=== PATIENT | female | born 2000 | race Caucasian/White ===

== ENCOUNTER 2025-06-15 11:45 | Outpatient (OUT) | payer OTHER, SELFPAY ==
[2025-06-15 12:24] LABS: Hematocrit 35.2 % (36.0-48.0); Hemoglobin 11.9 g/dL (12.0-16.0); Immature Granulocytes Abs Auto 0.02 10^3/uL (0.00-0.03); Immature Granulocytes Pct Auto 0.2 % (0.0-0.5); Lymphocytes Absolute Auto 1.4 10^3/uL (1.2-3.8); Mean Corpuscular HGB Conc 33.8 g/dL (29.9-35.2); Mean Corpuscular Hemoglobin 30.4 pg (26.7-34.0); Mean Corpuscular Volume 89.8 fL (81.0-99.0); Platelet Count 302 10^3/uL (150-450); Red Blood Count 3.92 10^6/uL (4.20-5.40); White Blood Count 8.2 10^3/uL (4.0-11.0)
[2025-06-15 13:17] LABS: Cannabinoid Screen Urine NEGATIVE (NEGATIVE); Methamphetamines Screen Urine NEGATIVE (NEGATIVE); Tricyclic Antidepressant Urine NEGATIVE (NEGATIVE)
[2025-06-16 05:07] LABS: Rubella Antibodies, IgG 4.39 index (Immune >0.99)
[2025-06-16 14:09] LABS: Rapid Plasma Reagin, Quant Non Reactive titer (NonRea<1:1)
[2025-06-18 13:09] LABS: Age Gdln ACOG Testing Note (.); IGP, rfx Aptima HPV ASCU Note (.)
== END 2025-06-15 11:46 | disposition home or self-care (01) ==
LOC: LAB 11:49
PROVIDERS: Visit Provider Physician Assistant
DX: Z34.92 Encounter for supervision of normal pregnancy, unspecified, second trimester (principal); Z3A.17 17 weeks gestation of pregnancy; N92.6 Irregular menstruation, unspecified
CPT/HCPCS: 36415; 80307; 82105; 83036; 85025; 86592; 86762; 86803; 86850; 86900; 86901; 87086; 87340; 87389; 88175

== ENCOUNTER 2025-06-15 19:02 | Outpatient (REF) | payer OTHER, SELFPAY ==
--- OUTSIDE RECORDS SUMMARY | 2025-06-15 10:30 | XMS_ITS | Encounter Summary ---
Author Organization [facility] [address] [place] [address] Care Team Providers Care Safety Sitter Name Role Phone Saray Cardenas MD Primary Care Provider Reason for Visit * ReasonCommentsRoutine Visit Encounter Details DateTypeDepartmentCare Team (Latest Contact Info)Kqpulngllwm35/09/2025 10:30 AM ESTRoutine [facility] [address] [place] [address] Carlita Jorge PA [address] [place], [place] [id number] Missed menses; , unspecified gestational age ([facility]); Encounter for supervision of normal first in first trimester ([facility]); Screening, , for anatomic survey ([facility]); Second trimester ([facility]); 17 weeks gestation of ([facility]) Social History Tobacco UseTypesPacks/DayYears UsedDateSmoking Tobacco: FormerCigarettes0.32 Quit: 1Smokeless Tobacco: Never Tobacco Cessation:Counseling Given: Not Answered Alcohol UseStandard Drinks/WeekCommentsNot Currently0 (1 standard drink = 0.6 oz pure alcohol)occassionally Caffine: under 200 mgEstimated Date of HzlxlqluHstidaeiBps66/13/2026Based on last menstrual period of 02/10/2025Sex and Gender InformationValueDate RecordedSex Assigned at BirthNot on fileLegal Sex Gslbbh6409/19/2022 8:28 PM EDTGender IdentityNot on fileSexual OrientationNot on filedocumented as of this encounter Last Filed Vital Signs Vital SignReadingTime TakenCommentsBlood Ftamnuuc736/6006/15/2025 10:54 AM EST Pulse--Temperature--Respiratory Rate--Oxygen Saturation--Inhaled Oxygen Concentration--Jgdlbq90.4 kg (142 lb)06/15/2025 10:54 AM ESTHeight--Body Mass Index--documented in this encounter Progress Notes * FREDA Bermeo - 06/15/2025 10:30 AM EST Reason for Appointment: Patient ID: Daria Alfredo is a 25 y.o. female who presents for Routine Visit Patient presents today for Annual Exam. and Return OB appointment. MEDICATIONS Current Outpatient Medications Medication Instructions fexofenadine-pseudoephedrine ER ([facility]) 180-240 MG 24 hr tablet ondansetron ODT (ZOFRAN-ODT) 4 mg, Oral, Every 6 hours PRN YO-Jfh-UW-Rowlett-3 (Vitafusion ) 0.18-32.5 MG chewable tablet ALLERGIES No Known Allergies PROBLEMS Active Ambulatory Problems Diagnosis Date Noted No Active Ambulatory Problems Resolved Ambulatory Problems Diagnosis Date Noted No Resolved Ambulatory Problems Past Medical History: Diagnosis Date Anxiety Depression HISTORY PAST MEDICAL HISTORY SOCIAL HISTORY Past Medical History: Diagnosis Date Anxiety Depression Social History Tobacco Use Smoking status: Former Current packs/day: 0.00 Average packs/day: 0.3 packs/day for 2.0 years (0.5 ttl pk-yrs) Types: Cigarettes Quit date: 07/08/2020 Years since quittin.9 Smokeless tobacco: Never Vaping Use Vaping status: Former Substance Use Topics Alcohol use: Not Currently Comment: occassionally Caffine: under 200 mg Drug use: Not Currently Types: Marijuana Comment: ediables FAMILY HISTORY Family History Problem Relation Name Age of Onset Hypertension Father Tavares Alfredo Heart attack Maternal Grandfather Darrell Stuart Heart failure Maternal Grandfather Darrell Stuart Brain cancer Paternal Grandmother Alem Alfredo Cancer Paternal Grandmother Alem Alfredo SURGICAL HISTORY History reviewed. No pertinent surgical history. REVIEW OF SYSTEMS Review of Systems: Review of Systems Constitutional: Negative. HENT: Negative. Eyes: Negative. Respiratory: Negative. Cardiovascular: Negative. Gastrointestinal: Negative. Genitourinary: Negative. Musculoskeletal: Negative. Skin: Negative. Neurological: Negative. All other systems reviewed and are negative. Hematological: Negative. Endocrine: Negative. Allergic/Immunologic: Negative. OBJECTIVE Objective: Physical Exam Constitutional: Appearance: Normal appearance. She is well-developed. Genitourinary: Vulva normal. Breasts: Breasts are soft. Right: Normal. Left: Normal. Cardiovascular: Rate and Rhythm: Normal rate and regular rhythm. Pulmonary: Effort: Pulmonary effort is normal. Breath sounds: Normal breath sounds. Abdominal: General: Bowel sounds are normal. There is no distension. Palpations: Abdomen is soft. Tenderness: There is no abdominal tenderness. There is no guarding or rebound. Musculoskeletal: General: No swelling. Normal range of motion. Right lower leg: No edema. Left lower leg: No edema. Neurological: Mental Status: She is alert and oriented to person, place, and time. Skin: General: Skin is warm and dry. Psychiatric: Mood and Affect: Mood normal. Behavior: Behavior normal. Vitals and nursing note reviewed. Exam conducted with a snuff blender present. Vitals: There is no height or weight on file to calculate BMI. BP: Patient's last menstrual period was 02/10/2025. ASSESSMENT & PLAN ICD-10-CM 1. Missed menses N92.6 CBC and differential Hemoglobin A1c RPR Rubella antibody, IgG Hepatitis B surface antigen Hepatitis C antibody HIV-1 and HIV-2 antibodies Urine culture Type and screen ABO/Rh Type and screen ABO/Rh 2. , unspecified gestational age ([facility]) Z34.90 CBC and differential Hemoglobin A1c RPR Rubella antibody, IgG Hepatitis B surface antigen Hepatitis C antibody HIV-1 and HIV-2 antibodies Type and screen ABO/Rh Rapid drug screen, urine Type and screen ABO/Rh Rapid drug screen, urine 3. Encounter for supervision of normal first in first trimester ([facility]) Z34.01 Rapid drug screen, urine Rapid drug screen, urine 4. Screening, , for anatomic survey ([facility]) Z36.89 US OB 14+ weeks anatomy scan US OB 14+ weeks anatomy scan 5. Second trimester ([facility]) Z34.92 Pap Smear SURESWAB(R) ADVANCED VAGINITIS PLUS, TMA CHLAMYDIA TRACHOMATIS (GENITO/STI) Neisseria gonorrhea DNA probe, direct Alpha fetoprotein, maternal Alpha fetoprotein, maternal 6. 17 weeks gestation of ([facility]) Z3A.17 POCT urinalysis dipstick manually resulted Assessment/Plan Return OB/Annual Exam: Patient presents today for a annual exam/routine obstetrics appointment. Patient is currently [id number]. Patient states she is doing well but has complaints of nausea in the morning. Pap and cultures was obtained without difficulty and patient was given orders for anatomy scan and msAFP to be obtained. Orders Placed This Encounter Procedures Urine culture US OB 14+ weeks anatomy scan CBC and differential Hemoglobin A1c RPR Rubella antibody, IgG Hepatitis B surface antigen Hepatitis C antibody HIV-1 and HIV-2 antibodies Type and screen ABO/Rh Rapid drug screen, urine CHLAMYDIA TRACHOMATIS (GENITO/STI) Neisseria gonorrhea DNA probe, direct Alpha fetoprotein, maternal POCT urinalysis dipstick manually resulted Follow Up: Patient is to schedule annual exam for next year and return to office in 4 weeks for OB appointment. Documented by Salina Hansen CST on behalf of: FREDA Bermeo documented in this encounter Plan of Treatment DateTypeDepartmentCare Team (Latest Contact Info)Bhsezsdvzhj06/06/2026 9:30 AM ESTAncillary Procedure [facility] [address] [place] [address] 07/13/2025 10:20 AM ESTRoutine [facility] [address] [place] [address] Bruno Andrade DO [address] [place] [address] NameTypePriorityAssociated DiagnosesOrder ScheduleCBC and differentialLabRoutine Missed menses , unspecified gestational age ([facility]) Ordered: 06/15/2025Hemoglobin R3kHlsLigqlap Missed menses , unspecified gestational age ([facility]) Ordered: 06/15/2025RPRLabRoutine Missed menses , unspecified gestational age ([facility]) Ordered: 06/15/2025Rubella antibody, IgGLabRoutine Missed menses , unspecified gestational age ([facility]) Ordered: 06/15/2025Hepatitis B surface antigenLabRoutine Missed menses , unspecified gestational age ([facility]) Ordered: 06/15/2025Hepatitis C antibodyLabRoutine Missed menses , unspecified gestational age ([facility]) Ordered: 06/15/2025HIV-1 and HIV-2 antibodiesLabRoutine Missed menses , unspecified gestational age ([facility]) Ordered: 06/15/2025Urine cultureMicrobiologyRoutine Missed menses Ordered: 06/15/2025Type and screenLabRoutine Missed menses , unspecified gestational age ([facility]) Expected: 06/15/2025 (Approximate), Expires: 06/15/2026BO/RhLabRoutine Missed menses , unspecified gestational age ([facility]) Expected: 06/15/2025 (Approximate), Expires: 06/15/2026Rapid drug screen, urine LabRoutine , unspecified gestational age ([facility]) Encounter for supervision of normal first in first trimester ([facility]) Expected: 06/15/2025 (Approximate), Expires: 06/15/2026Pap SmearPathology and CytologyRoutine Second trimester ([facility]) Ordered: 06/15/2025SURESWAB(R) ADVANCED VAGINITIS PLUS, TMAPathology and CytologyRoutine Second trimester ([facility]) Ordered: 06/15/2025HLAMYDIA TRACHOMATIS (GENITO/STI)LabRoutine Second trimester ([facility]) Ordered: 06/15/2025Neisseria gonorrhea DNA probe, directLabRoutine Second trimester ([facility]) Ordered: 06/15/2025US OB 14+ weeks anatomy scanImagingRoutine Screening, , for anatomic survey ([facility]) Expected: 06/15/2025, Expires: 09/13/2025lpha fetoprotein, maternalLabRoutine Second trimester ([facility]) Expected: 06/15/2025 (Approximate), Expires: 08/16/2025documented as of this encounter Goals GoalPatient Goal TypeAssociated ProblemsRecent ProgressPatient-Stated?Author Reminders Care PlanOB RemindersNoOpen Scheduling, Backgrounddocumented as of this encounter Procedures Procedure NamePriorityDate/TimeAssociated DiagnosisCommentsPOCT URINALYSIS PPHXHHFJClzzqwe87/09/2025 11:09 AM EST 17 weeks gestation of ([facility]) documented in this encounter Results * POCT urinalysis dipstick manually resulted (06/15/2025 11:09 AM EST)Component ValueRef RangeTest MethodAnalysis TimePerformed AtPathologist SignatureColor, UAYellowClarity, UAClearGlucose, UANegativeNegative - 2000(110) ++++ mg/dL Bilirubin, UANegativeNegative - 4(70) +++ mg/dLKetones, UANegativeNegative - 160(16) ++++ mg/dLSpec Grav, UA1.0151 - 1.03Blood, UANegativeNegative - 50 Raghu/mcLpH, UA7.05 - 9Protein, UANegativeNegative - 2000(20) ++++ mg/dL Urobilinogen, UA1.00.2 - 12 mg/dLLeukocytes, UANegativeNegative - 500+++ Armaan/mcLNitrite, UANegativeNegative - PositiveSpecimen (Source)Anatomical Location / LateralityCollection Method / VolumeCollection TimeReceived Time Urine06/15/2025 11:09 AM EST Narrative Authorizing ProviderResult TypeResult StatusWellmont Health System TEST ENTER/EDIT ORDERABLESFinal Result documented in this encounter Visit Diagnoses Diagnosis Missed menses , unspecified gestational age ([facility]) Encounter for supervision of normal first in first trimester ([facility]) Screening, , for anatomic survey ([facility]) Encounter for anatomic survey Second trimester ([facility]) state, incidental 17 weeks gestation of ([facility]) documented in this encounter Additional Health Concerns Active ProblemsNoted DateDiagnosed DateOB Ummjhdhag52/20/2025 documented as of this encounter Care Teams Team MemberRelationshipSpecialtyStart DateEnd Date Saray Cardenas MD [address] [place] [address] PCP - GeneralFamily Medicine04/06/25documented as of this encounter
--- OUTSIDE RECORDS SUMMARY | 2025-06-15 19:07 | XMS_ITS | Clinical Summary ---
Author Organization [facility] Address [address] [place] [address] Care Team Providers Care Recruiting Manager Name Role Phone Saray Cardenas MD Primary Care Provider [phone] Allergies No known active allergies Medications MedicationSigDispense QuantityRefillsLast FilledStart DateEnd DateStatus fexofenadine-pseudoephedrine ER (Bettie-D Allergy & Congestion) 180-240 MG 24 hr tablet 4Active UQ-Hbc-SP-[place]-3 (Vitafusion ) 0.18-32.5 MG chewable tablet 5Active ondansetron ODT (Zofran-ODT) 4 MG disintegrating tablet Indications:NauseaTake 1 tablet (4 mg) by mouth every 6 (six) hours if needed for nausea or vomiting 30 tablet 5Active ondansetron ODT (Zofran-ODT) 4 MG disintegrating tablet Indications:NauseaTake 1 tablet (4 mg) by mouth every 6 (six) hours if needed for nausea or vomiting 30 tablet Discontinued(Reorder) Active Problems Estimated Date of JrstkpwtHbigrdgtJdu25/13/2026ased on last menstrual period of 02/10/2025 No known active problems Encounters DateTypeDepartmentCare VbmzObpdziypudc09/09/2025 10:30 AM ESTRoutine [facility] [address] [place] [address] [place] [address] Carlita Jorge PA Missed menses; , unspecified gestational age ([facility]); Encounter for supervision of normal first in first trimester ([facility]); Screening, , for anatomic survey ([facility]); Second trimester ([facility]); 17 weeks gestation of ([facility])5Clinisync Result Encounter [facility] External Department Unsolicited Carlita Jorge PA 06/15/2025amboo flowsheet [facility] [address] [place] [address] Carlita Jorge PA 05/17/2025 9:50 AM ESTRoutine [facility] [address] [place] [address] [phone] Bruno Andrade, DO 13 weeks gestation of ([facility]); Second trimester ([facility]); Qrblkd285Bamboo flowsheet [facility] [address] [facility] [place] [address] Bruno Andrade, DO 05/12/20255109Kapofd72/14/2025bstract [facility] [address] [facility] [place] [address] Noemí Gonzalez, VILLA 04/20/2025Telephone [facility] [address] [facility] [facility] [place] [address] Bruno Andrade, DO 04/20/2025bstract [facility] [address] [facility] [facility] [place] [address] Bruno Andrade, DO 04/19/2025External Result Encounter [facility] [address] [place] [address] Bruno Andrade, DO 04/16/2025 10:00 AM EDTInitial [facility] [address] [place] [address] [place]: 9w2d04/06/2025 10:00 AM EDTOffice Visit [facility] [address] [facility] [place] [phone] Virgen Augustin NP Encounter to establish care with new provider (Primary Dx); Routine general medical examination at a health care yiehrejv25/30/2025amboo flowsheet [facility] [address] [place] [phone] Virgen Augustin NP 04/06/2025Travelfrom Last 3 Months Family History Medical HistoryRelationNameCommentsHypertensionFatherJim SlickHeart attack Maternal GrandfatherJairo LozanoHeart failureMaternal GrandfatherJairo Stuart Brain cancerPaternal GrandmotherLinda SlickCancerPaternal GrandmotherLinda Orland RelationNameStatusCommentsFatherJim SlickAliveMaternal GrandfatherJairo Stuart DeceasedMotherAlivePaternal GrandmotherLinda SlickDeceased Social History Tobacco UseTypesPacks/DayYears UsedDateSmoking Tobacco: FormerCigarettes0.32 Quit: 07/08/2020mokeless Tobacco: Never Tobacco Cessation:Counseling Given: Not Answered Alcohol UseStandard Drinks/WeekCommentsNot Currently0 (1 standard drink = 0.6 oz pure alcohol)occassionally Caffine: under 200 mgEstimated Date of XpbzdrblJrpxszkaJdz52/13/2026ased on last menstrual period of 02/10/2025Sex and Gender InformationValueDate RecordedSex Assigned at BirthNot on fileLegal Sex Avjtej2509/19/2022 8:28 PM EDTGender IdentityNot on fileSexual OrientationNot on file Last Filed Vital Signs Vital SignReadingTime TakenCommentsBlood Gniuztom800/6012 10:54 AM EST Mzxsn263104/06/2025 9:57 AM VSCZyyvyhdrtle46.3 ??C (97.3 ??F)04/06/2025 9:57 AM EDTRespiratory Rate--Oxygen Iqntpdaymh65%04/06/2025 9:57 AM EDTInhaled Oxygen Concentration--Gisbkp23.4 kg (142 lb)06/15/2025 10:54 AM ESTHeight--Body Mass Index-- Plan of Treatment DateTypeDepartmentCare Team (Latest Contact Info)Fdmcupxssfg53/06/2026 9:30 AM ESTAncillary Procedure [facility] [address] [facility] [place] [address] 07/13/2025 10:20 AM ESTRoutine [facility] [address] [facility] [place] [phone] Bruno Andrade DO [address] [facility] [place] [address] Health MaintenanceDue DateLast DoneCommentsCOVID-19 Vaccine ( season) , 05/04/2021Influenza Vaccine (#1) Pneumococcal Vaccine: Pediatrics (0 to 5 Years) and At-Risk Patients (6 to 64 Years)Aged OutNo longer eligible based on patient's age to complete this topic Goals GoalPatient Goal TypeAssociated ProblemsRecent ProgressPatient-Stated?Author Reminders Care PlanOB RemindersNoOpen Scheduling, Background Procedures Procedure NamePriorityDate/TimeAssociated DiagnosisCommentsALL TYPE AND SCREEN Nmrqyae2106/15/2025 12:06 PM EST MLR HEMOGLOBIN Z4ZEilvhza51/09/2025 12:06 PM EST ALL CBC WITH AUTO TGTLRxabxjq45/09/2025 12:06 PM EST TB[facility] DRUG SCREEN RAPID (URINE)Mbfqpfz0706/15/2025 12:00 PM EST POCT URINALYSIS DENFHISVKbhzilc38/09/2025 11:09 AM EST 17 weeks gestation of ([facility]) POCT URINALYSIS KUGLXCXSFnvkfet46/10/2025 10:05 AM EST 13 weeks gestation of ([facility]) Second trimester ([facility]) US OB RGAUXWCAACPF28/13/2025 11:18 AM EDT POCT URINALYSIS FMYKSGCRTkuwlwq47/10/2025 10:02 AM EDT Missed menses POCT , DGADZNinaldd39/10/2025 10:01 AM EDT Missed menses from Last 3 Months Results * MLR HEMOGLOBIN A1C (06/15/2025 12:06 PM EST)ComponentValueRef RangeTest Method Analysis TimePerformed AtPathologist SignatureGLYCOHEMOGLOBIN A1C4.54.5 - 6.2 %TBHComment: ADA RECOMMENDED LIMIT 4.0 - 6.0 ADA THERAPEUTIC TARGET < 7.0 ACTION SUGGESTED > 7.0 ESTIMATED AVERAGE LSKGAVM82kq/dLTBHSpecimen (Source)Anatomical Location / LateralityCollection Method / VolumeCollection TimeReceived Time06/15/2025 12:06 PM EST06/15/2025 12:19 PM EST Narrative [facility] - 06/15/2025 1:16 PM EST Authorizing ProviderResult TypeResult StatusAmy Luisito PACLINISYNCFinal Result Performing OrganizationAddressCity/State/ZIP CodePhone Number CLINISYNC TB * ALL TYPE AND SCREEN (06/15/2025 12:06 PM EST)ComponentValueRef RangeTest MethodAnalysis TimePerformed AtPathologist SignatureBLOOD TYPEO PositiveTBH ANTIBODY SCREENNEGATIVETBHSpecimen (Source)Anatomical Location / Laterality Collection Method / VolumeCollection TimeReceived Time06/15/2025 12:06 PM EST 06/15/2025 12:19 PM EST Narrative [facility]IN[facility]NC - 06/15/2025 1:17 PM EST [facility] , ?? Authorizing ProviderResult TypeResult StatusAmy Luisito PACLINISYNCFinal Result Performing OrganizationAddressCity/State/ZIP CodePhone Number CLINISYNC TBH * (ABNORMAL) ALL CBC WITH AUTO DIFF (06/15/2025 12:06 PM EST)ComponentValueRef RangeTest MethodAnalysis TimePerformed AtPathologist SignatureTBH WBC8.24.0 - 11.0 10 3/uLTBHTBH RBC3.92(L)4.20 - 5.40 10 6/uLTBHTBH HGB11.9(L)12.0 - 16.0 g/dLTBHTBH HCT35.2(L)36.0 - 48.0 %TBHTBH MCV89.881.0 - 99.0 fLTBHTBH MCH30.4 26.7 - 34.0 pgTBHTBH MCHC33.829.9 - 35.2 g/dLTBHTBH RDW12.511.0 - 15.0 %TBHTBH NGL717420 - 450 10 3/uLTBHTBH MPV9.4(L)9.5 - 13.5 fLTBHNEUTROPHILS PERCENT AUTO73.643.0 - 75.0 %TBHLYMPHOCYTES PERCENT AUTO17.3(L)20.5 - 60.0 %TBH MONOCYTES PERCENT AUTO7.01.7 - 12.0 %TBHTBH EO %1.50.9 - 7.0 %TBHBASOPHILS PERCENT AUTO0.40.2 - 2.0 %TBHIMMATURE GRANULOCYTES PCT AUTO0.20.0 - 0.5 %TBH NEUTROPHILS ABSOLUTE AUTO6.01.4 - 6.5 10 3/uLTBHLYMPHOCYTES ABSOLUTE AUTO1.4 1.2 - 3.8 10 3/uLTBHMONOCYTES ABSOLUTE AUTO0.60.3 - 0.8 10 3/uLTBHTBH EO #0.1 0.0 - 0.7 10 3/uLTBHBASOPHILS ABSOLUTE AUTO0.00.0 - 0.1 10 3/uLTBHIMMATURE GRANULOCYTES ABS AUTO0.020.00 - 0.03 10 3/uLTBHSpecimen (Source)Anatomical Location / LateralityCollection Method / VolumeCollection TimeReceived Time 06/15/2025 12:06 PM EST06/15/2025 12:19 PM EST Narrative [facility]NC - 06/15/2025 12:26 PM EST Authorizing ProviderResult TypeResult StatusAmy [place] PACLINISYNCFinal Result Performing OrganizationAddressCity/State/ZIP CodePhone Number CLINISYNC TB * TB DRUG SCREEN RAPID (URINE) (06/15/2025 12:00 PM EST)ComponentValueRef Range Test MethodAnalysis TimePerformed AtPathologist SignatureCANNABINOID SCREEN URINENEGATIVENEGATIVETBHPHENCYCLIDINE SCREEN URINENEGATIVENEGATIVETBHCOCAINE SCREEN URINENEGATIVENEGATIVETBHMETHAMPHETAMINES SCREEN URINENEGATIVENEGATIVE TBHOPIATE SCREEN URINENEGATIVENEGATIVETBHAMPHETAMINE SCREEN URINENEGATIVE NEGATIVETBHBENZODIAZEPINES SCREEN URINENEGATIVENEGATIVETBHTRICYCLIC ANTIDEPRESSANT URINENEGATIVENEGATIVETBHMETHADONE SCREEN URINENEGATIVENEGATIVE TBHBARBITURATES SCREEN URINENEGATIVENEGATIVETBHOXYCODONE SCREEN URINENEGATIVE NEGATIVETBHBUPRENORPHINE SCREEN URINENEGATIVENEGATIVETBHComment: DRUG CLASS TEST SYSTEM CUT-OFF CONCENTRATIONS ARE FOLLOWS: AMP (Amphetamine): 500 ng/mL BAR (Barbiturates): 200 ng/mL BZO (Benzodiazepines): 150 ng/mL BUP (Buprenorphine): 10 ng/mL RALEIGH (Cocaine): 150 ng/mL mAMP (Methamphetamine): 500 ng/mL MTD (Methadone): 200 ng/mL OPI (Opiates): 100 ng/mL OXY (Oxycodone): 100 ng/mL PCP (Phencyclidine): 25 ng/mL THC (Cannabinoids): 50 ng/mL TCA (Trycyclic Antidepressants): 300 ng/mL Specimen (Source)Anatomical Location / LateralityCollection Method / Volume Collection TimeReceived Time06/15/2025 12:00 PM EST06/15/2025 12:22 PM EST Narrative [facility]INISYNC - 06/15/2025 1:17 PM EST Authorizing ProviderResult TypeResult StatusAmy [place] PACLINISYNCFinal Result Performing OrganizationAddressCity/State/ZIP CodePhone Number CLINISYNC TBH * POCT urinalysis dipstick manually resulted (06/15/2025 11:09 AM EST) Only the most recent of3 resultswithin the time period is included. ComponentValueRef RangeTest MethodAnalysis TimePerformed AtPathologist Signature Color, UAYellowClarity, UAClearGlucose, UANegativeNegative - 2000(110) ++++ mg/dLBilirubin, UANegativeNegative - 4(70) +++ mg/dLKetones, UANegativeNegative - 160(16) ++++ mg/dLSpec Grav, UA1.0151 - 1.03Blood, UANegativeNegative - 50 Raghu/mcLpH, UA7.05 - 9Protein, UANegativeNegative - 2000(20) ++++ mg/dL Urobilinogen, UA1.00.2 - 12 mg/dLLeukocytes, UANegativeNegative - 500+++ Armaan/mcL Nitrite, UANegativeNegative - PositiveSpecimen (Source)Anatomical Location / LateralityCollection Method / VolumeCollection TimeReceived RfjnEdwcn17/09/2025 11:09 AM EST Narrative Authorizing ProviderResult TypeResult StatusAmy [facility] TEST ENTER/EDIT ORDERABLESFinal Result * US OB transvaginal (04/19/2025 11:18 AM EDT)Anatomical RegionLaterality ModalityBodyUltrasoundSpecimen (Source)Anatomical Location / Laterality Collection Method / VolumeCollection TimeReceived Time04/19/2025 11:18 AM EDT Narrative 04/19/2025 11:17 AM EDT THIS EXAM WAS PERFORMED AT [facility] [place] US TRANSVAGINAL PREG HISTORY: Encounter for supervision of normal in first trimester. ??Dating. ??Viability. ??Missed menses, positive urine test. COMPARISON: None TECHNIQUE: Early obstetric ultrasound utilizing transvaginal imaging. Grayscale and color Doppler used. FINDINGS: The uterus measures approximately 10.5 x 6.0 x 6.8 cm. The urinary bladder is unremarkable. ??Thereis no evidence of free fluid in the pelvic cul-de-sac. A single intrauterine gestation is noted. ??The crown rump length measures 2.3 cm consistent with an age of 9 weeks and 0 days. The heart rate is 161 beats per minute. ??Internal dimensions of the yolk sac measure approximately 0.33 cm. ??Amniotic fluid volume is appropriate for gestational age. No subchorionic hemorrhage demonstrated. ??No placenta seen given early gestational age. The right ovary measures 2.7 x 1.9 x 1.7 cm. ??Color Doppler demonstrates normal blood flow. ?? The left ovary measures 2.7 x 2.6 x 2.8 cm. ??Color Doppler demonstrates normal blood flow. ??Intraovarian cystic structure with a thick wall and peripheral Doppler flow, corresponding with a corpus luteal cyst. IMPRESSION: Single live intrauterine . ??The estimated age is 9 weeks and 0 days by crown-rump length.??The estimated date of delivery is 11/22/2025 by ultrasound. The heart rate is 161 beats per minute. Approved by Dmia Gutierrez MD ??on 04/19/2025 9:09 AM I, Lex Farr MD have personally reviewed the image(s) and agree with and/or edited the report Finalized by Lex Farr MD on 04/19/2025 11:17 AM Procedure Note Radiology, Radiologist, - 04/19/2025 THIS EXAM WAS PERFORMED AT [facility] TRANSVAGINAL PREG HISTORY: Encounter for supervision of normal in first trimester. Dating. Viability. Missed menses, positive urine test. COMPARISON: None TECHNIQUE: Early obstetric ultrasound utilizing transvaginal imaging.Grayscale and color Doppler used. FINDINGS: The uterus measures approximately 10.5 x 6.0 x 6.8 cm. The urinary bladderis unremarkable. There is no evidence of free fluid in the xmzlsdkkf-cz-xth. A single intrauterine gestation is noted. The crown rump length measures2.3 cm consistent with an age of 9 weeks and 0 days. The heart rateis 161 beats per minute. Internal dimensions of the yolk sac measureapproximately 0.33 cm. Amniotic fluid volume is appropriate forgestational age. No subchorionic hemorrhage demonstrated. No placenta seen given earlygestational age. The right ovary measures 2.7 x 1.9 x 1.7 cm. Color Doppler demonstratesnormal blood flow. The left ovary measures 2.7 x 2.6 x 2.8 cm. Color Doppler demonstratesnormal blood flow. Intraovarian cystic structure with a thick wall andperipheral Doppler flow, corresponding with a corpus luteal cyst. IMPRESSION: Single live intrauterine . The estimated age is 9 weeks and 0days by crown-rump length. The estimated date of delivery is 11/22/2025 byultrasound. The heart rate is 161 beats per minute. Approved by Dima Gutierrez MD on 04/19/2025 9:09 AM ILex MD have personally reviewed the image(s) and agreewith and/or edited the report Finalized by Lex Farr MD on 04/19/2025 11:17 AM Authorizing ProviderResult TypeResult StatusCorey Raymond DOIMG OB US PROCEDURES Final Result * (ABNORMAL) POCT , urine manually resulted (04/16/2025 10:01 AM EDT) ComponentValueRef RangeTest MethodAnalysis TimePerformed AtPathologist SignaturePreg Test, UrPositiveNegativeSpecimen (Source)Anatomical Location / LateralityCollection Method / VolumeCollection TimeReceived TimeUrine 04/16/2025 10:01 AM EDT Narrative Authorizing ProviderResult TypeResult StatusCorey Raymond DOPOINT OF CARE TEST ENTER/EDIT ORDERABLESFinal Result from Last 3 Months Additional Health Concerns Active ProblemsNoted DateDiagnosed DateOB Nluylioxl83/20/2025 Insurance Care Teams Team MemberRelationshipSpecialtyStart DateEnd Date Saray Cardenas MD [address] [place] [address] PCP - GeneralFamily Medicine04/06/25
--- OUTSIDE RECORDS SUMMARY | 2025-06-15 19:07 | XMS_ITS | Encounter Summary ---
Author Organization [facility] Address [address] [place] [address] Care Team Providers Care Senior Air Director Name Role Phone Saray Cardenas MD Primary Care Provider [phone] Encounter Details DateTypeDepartmentCare Team (Latest Contact Info)Unkxknygyyl98/09/2025linisync Result Encounter [facility] External Department Unsolicited Carlita Jorge PA [address] [place], [facility] Social History Tobacco UseTypesPacks/DayYears UsedDateSmoking Tobacco: FormerCigarettes0.32 Quit: 07/08/2020mokeless Tobacco: NeverAlcohol UseStandard Drinks/WeekComments Not Currently0 (1 standard drink = 0.6 oz pure alcohol)occassionally Caffine: under 200 mgEstimated Date of YhonwoskNvxhqhrsQqc78/13/2026Based on last menstrual period of 02/10/2025Sex and Gender InformationValueDate RecordedSex Assigned at BirthNot on fileLegal MagLkcbax62/15/2023 8:28 PM EDTGender Identity Not on fileSexual OrientationNot on filedocumented as of this encounter Plan of Treatment DateTypeDepartmentCare Team (Latest Contact Info)Nkanfxtkgnu99/06/2026 9:30 AM ESTAncillary Procedure [facility] [address] [place] [address] 07/13/2025 10:20 AM ESTRoutine [facility] [address] [place] [address] Bruno Andrade, DO [address] [facility] [place] [address] documented as of this encounter Goals GoalPatient Goal TypeAssociated ProblemsRecent ProgressPatient-Stated?Author Reminders Care PlanOB RemindersNoOpen Scheduling, Backgrounddocumented as of this encounter Procedures Procedure NamePriorityDate/TimeAssociated DiagnosisCommentsMLR HEMOGLOBIN A1C Miahvfo8106/15/2025 12:06 PM EST ALL TYPE AND EZKFVGYhyobpl46/09/2025 12:06 PM EST ALL CBC WITH AUTO OXJPJshmwjs48/09/2025 12:06 PM EST TB[facility] DRUG SCREEN RAPID (URINE)Uwwvmne6106/15/2025 12:00 PM EST documented in this encounter Results * ALL TYPE AND SCREEN (06/15/2025 12:06 PM EST)ComponentValueRef RangeTest MethodAnalysis TimePerformed AtPathologist SignatureBLOOD TYPEO PositiveTBH ANTIBODY SCREENNEGATIVETBHSpecimen (Source)Anatomical Location / Laterality Collection Method / VolumeCollection TimeReceived Time06/15/2025 12:06 PM EST 06/15/2025 12:19 PM EST Narrative [facility] - 06/15/2025 1:17 PM EST [facility] , ?? Authorizing ProviderResult TypeResult StatusAmy Luisito PACLINISYNCFinal Result Performing OrganizationAddressCity/State/ZIP CodePhone Number CLINISYNC TBH * MLR HEMOGLOBIN A1C (06/15/2025 12:06 PM EST)ComponentValueRef RangeTest Method Analysis TimePerformed AtPathologist SignatureGLYCOHEMOGLOBIN A1C4.54.5 - 6.2 %TBHComment: ADA RECOMMENDED LIMIT 4.0 - 6.0 ADA THERAPEUTIC TARGET < 7.0 ACTION SUGGESTED > 7.0 ESTIMATED AVERAGE VMFPIIX49pa/dLTBHSpecimen (Source)Anatomical Location / LateralityCollection Method / VolumeCollection TimeReceived Time06/15/2025 12:06 PM EST06/15/2025 12:19 PM EST Narrative CLINISYNC - 06/15/2025 1:16 PM EST Authorizing ProviderResult TypeResult StatusAmy [place] PACLINISYNCFinal Result Performing OrganizationAddressCity/State/ZIP CodePhone Number [facility] * (ABNORMAL) ALL CBC WITH AUTO DIFF (06/15/2025 12:06 PM EST)ComponentValueRef RangeTest MethodAnalysis TimePerformed AtPathologist SignatureTBH WBC8.24.0 - 11.0 10 3/uLTBHTBH RBC3.92(L)4.20 - 5.40 10 6/uLTBHTBH HGB11.9(L)12.0 - 16.0 g/dLTBHTBH HCT35.2(L)36.0 - 48.0 %TBHTBH MCV89.881.0 - 99.0 fLTBHTBH MCH30.4 26.7 - 34.0 pgTBHTBH MCHC33.829.9 - 35.2 g/dLTBHTBH RDW12.511.0 - 15.0 %TBHTBH TWC087351 - 450 10 3/uLTBHTBH MPV9.4(L)9.5 - 13.5 [...] 12:26 PM EST Authorizing ProviderResult TypeResult StatusAmy Luisito PACLINISYNCFinal Result Performing OrganizationAddressCity/State/ZIP CodePhone Number [facility] * [facility] DRUG SCREEN RAPID (URINE) (06/15/2025 12:00 PM [...] (Benzodiazepines): 150 ng/mL BUP (Buprenorphine): 10 ng/mL RLAEIGH (Cocaine): 150 ng/mL mAMP (Methamphetamine): 500 ng/mL MTD (Methadone): 200 ng/mL OPI (Opiates): 100 ng/mL OXY (Oxycodone): 100 ng/mL PCP (Phencyclidine): 25 ng/mL THC (Cannabinoids): 50 ng/mL TCA (Trycyclic Antidepressants): 300 ng/mL Specimen (Source)Anatomical Location / LateralityCollection Method / Volume Collection TimeReceived Time06/15/2025 12:00 PM EST06/15/2025 12:22 PM EST Narrative CLINISYNC - 06/15/2025 1:17 PM EST Authorizing ProviderResult TypeResult StatusAmy Luisito PACLINISYNCFinal Result Performing OrganizationAddressCity/State/ZIP CodePhone Number [facility] documented in this encounter Visit Diagnoses Not on filedocumented in this encounter Additional Health Concerns Active ProblemsNoted DateDiagnosed DateOB Drqvhurcs93/20/2025 documented as of this encounter Care Teams Team MemberRelationshipSpecialtyStart DateEnd Date Saray Cardenas MD [address] [place] [address] PCP - GeneralFamily Medicine04/06/25documented as of this encounter
--- OUTSIDE RECORDS SUMMARY | 2025-06-15 19:07 | XMS_ITS | Clinical Summary ---
Author Organization [facility] tem Address [id number] [address] [place] [address] Care Team Providers Care Building Consultant Name Role Phone No Pcp, No Pcp Primary Care Provider Unavailabl e Encounters DateTypeDepartmentCare QvgbPfrjgcvzepu79/13/2025 7:57 AM EDT - 04/19/2025 11:59 PM EDTHospital Encounter [facility] [address] [place] [phone] Bruno Andrade, Missed menses; Positive urine test Discharge Disposition: Home04/19/2025Travelfrom Last 3 Months Social History Tobacco UseTypesPacks/DayYears UsedDateSmoking Tobacco: Never AssessedChildcare AnswerDate IibhhsrsFcgsyvwckCjzpmye73/12/2019EmploymentAnswerDate Recorded FnzjpfatukFltlpgi59/12/2019CommentsUnknownSex and Gender Information ValueDate RecordedSex Assigned at BirthNot on fileLegal OfrGtdnoo45/06/2015 12:00 PM EDTGender IdentityNot on fileSexual OrientationNot on file Plan of Treatment Health MaintenanceDue DateLast DoneCommentsDepression Msbktkxpb30/01/2012Tobacco Rmncsczfw93/01/2012dult BMI Rxokxaovx26/01/2018Pap Smear2021TaP,Tdap and Td Vaccines (7 - Td or Tdap)/08/2012, 10/08/2005, 02/24/2002, Additional history existsInfluenza Ablercq2000 Medical Devices Not on file Procedures Procedure NamePriorityDate/TimeAssociated DiagnosisCommentsUS TRANSVAGINAL PREG Azptkxx9104/19/2025 8:34 AM EDT Missed menses Positive urine test from Last 3 Months Results * Ultrasound transvaginal preg (04/19/2025 8:34 AM EDT)Anatomical Region LateralityModalityBodyUltrasoundSpecimen (Source)Anatomical Location / LateralityCollection Method / VolumeCollection TimeReceived Time04/19/2025 9:09 AM EDT Narrative 04/19/2025 11:17 AM EDT US TRANSVAGINAL PREG HISTORY: Encounter for supervision [...] per minute. Approved by Dima Gutierrez MD ??on 04/19/2025 9:09 AM I, Lex Farr MD have personally reviewed the image(s) and agree with and/or edited the report Finalized by Lex Farr MD on 04/19/2025 11:17 AM Procedure Note Lex Farr MD - 04/19/2025 US TRANSVAGINAL PREG HISTORY: Encounter for supervision of normal in first trimester. Dating. Viability. Missed menses, positive urine test. COMPARISON: None TECHNIQUE: Early obstetric ultrasound utilizing transvaginal imaging.Grayscale and color Doppler used. FINDINGS: The uterus measures approximately 10.5 x 6.0 x 6.8 cm. The urinary bladderis unremarkable. There is no evidence of free fluid in the rboebaoca-yy-mqs. A single intrauterine gestation is noted. The [...] Dima Gutierrez MD on 04/19/2025 9:09 AM Lex Hurtado MD have personally reviewed the image(s) and agreewith and/or edited the report Finalized by Lex Farr MD on 04/19/2025 11:17 AM Authorizing ProviderResult TypeResult StatusCorey Lucian HAMEED US ORDERABLES Final Result from Last 3 Months Insurance Care Teams Team MemberRelationshipSpecialtyStart DateEnd Date No Pcp, No Pcp LEON Gun[place] [address] [facility] Em[facility]wxg15/13/25
--- OUTSIDE RECORDS SUMMARY | 2025-06-15 19:07 | XMS_ITS | Encounter Summary ---
Author Organization [facility] Address [address] [place] [address] Care Team Providers Care Hand Wrapper Operator Name Role Phone Saray Cardenas MD Primary Care Provider [phone] Encounter Details DateTypeDepartmentCare Team (Latest Contact Info)Zyiebujgnyf28/09/2025amboo flowsheet [facility] [address] [place] [phone] Carlita Jorge PA [address] [place] [address] Social History Tobacco UseTypesPacks/DayYears UsedDateSmoking Tobacco: FormerCigarettes0.32 Quit: 07/08/2020mokeless Tobacco: NeverAlcohol UseStandard Drinks/WeekComments Not Currently0 (1 standard drink = 0.6 oz pure alcohol)occassionally Caffine: under 200 mgEstimated Date of AomdoahrKyidsvetGye45/13/2026Based on last menstrual period of 02/10/2025Sex and Gender InformationValueDate RecordedSex Assigned at BirthNot on fileLegal RsfDsszil48/15/2023 8:28 PM EDTGender Identity Not on fileSexual OrientationNot on filedocumented as of this encounter Plan of Treatment DateTypeDepartmentCare Team (Latest Contact Info)Mbisqeuuwhr33/06/2026 9:30 AM ESTAncillary Procedure [facility] [address] [place] [address] 07/13/2025 10:20 AM ESTRoutine [facility] [address] [place] [phone] Bruno Andrade DO [address] [place] [address] documented as of this encounter Goals GoalPatient Goal TypeAssociated ProblemsRecent ProgressPatient-Stated?Author Reminders Care PlanOB RemindersNoOpen Scheduling, Backgrounddocumented as of this encounter Visit Diagnoses Not on filedocumented in this encounter Additional Health Concerns Active ProblemsNoted DateDiagnosed DateOB Pgheqapme23/20/2025 documented as of this encounter Care Teams Team MemberRelationshipSpecialtyStart DateEnd Date Saray Cardenas MD [address] [place] [address] PCP - GeneralFamily Medicine04/06/25documented as of this encounter
== END 2025-06-15 19:03 | disposition home or self-care (01) ==
LOC: LAB 19:02
PROVIDERS: Visit Provider Physician Assistant
DX: Z01.419 Encounter for gynecological examination (general) (routine) without abnormal findings (principal)